=== PATIENT | female | born 1990 | race Caucasian/White ===

== ENCOUNTER 2018-03-15 04:13 | Inpatient (IN) | payer BC ==
[2018-03-15] MEDS ORDERED: Sodium Chloride 0.9% 10 ML Syringe FLUSH PRN (05:27)
[2018-03-15] MEDS ORDERED: Ondansetron 4 MG/2 ML SDV IVPUSH PRN (05:27)
[2018-03-15] MEDS ORDERED: Nalbuphine 20 MG/ML 1 ML Syringe IVPUSH PRN (05:27)
[2018-03-15] MEDS ORDERED: Oxytocin/Lactated Ringers 10 UNIT/1,000 ML BAG IV SCH (05:30)
[2018-03-15] MEDS: Lactated Ringers 1,000 ML IV SCH ×2 (06:01→06:58)
--- NOTE | 2018-03-15 06:15 | PCM.PREANE ---
Preanesthetic Assessment - Anesthesia/Transfusion/Family Hx Anesthesia History: Prior Anesthesia Without Reaction - Review of Systems General: No Symptoms Pulmonary: No Symptoms Cardiovascular: No Symptoms Gastrointestinal: No Symptoms Neurological: No Symptoms - Physical Assessment NPO Status Date: 03/15/18 NPO Status Time: 06:00 Height: 1.73 m Weight: 76.204 kg ASA Class: 2 Mental Status: Alert & Oriented x3 Airway Class: Mallampati = 1 Dentition: Reports: Normal Dentition Thyro-Mental Finger Breadths: 3 Mouth Opening Finger Breadths: 3 ROM/Head Extension: Full Lungs: Clear to Auscultation Cardiovascular: Regular Rate - Lab Values: Laboratory Last Values WBC 20.52 K/mm3 (3.98-10.04) H 03/15/18 05:15 RBC 5.17 M/mm3 (3.98-5.22) 03/15/18 05:15 Hgb 14.6 gm/L (11.2-15.7) 03/15/18 05:15 Hct 42.9 % (34.1-44.9) 03/15/18 05:15 MCV 83.0 fl (79.4-94.8) 03/15/18 05:15 MCH 28.2 pg (25.6-32.2) 03/15/18 05:15 MCHC 34.0 g/dl (32.2-35.5) 03/15/18 05:15 RDW Std Deviation 41.0 fL (36.4-46.3) 03/15/18 05:15 Plt Count 253 K/mm3 (182-369) 03/15/18 05:15 MPV 10.4 fl (9.4-12.3) 03/15/18 05:15 Neut % (Auto) 76.3 % (34.0-71.1) H 03/15/18 05:15 Lymph % (Auto) 14.7 % (19.3-51.7) L 03/15/18 05:15 [place] % (Auto) 7.9 % (4.7-12.5) 03/15/18 05:15 Eos % (Auto) 0.6 (0.7-5.8) L 03/15/18 05:15 Baso % (Auto) 0.1 % (0.1-1.2) 03/15/18 05:15 Neut # (Auto) 15.65 K/mm3 (1.56-6.13) H 03/15/18 05:15 Lymph # (Auto) 3.01 K/mm3 (1.18-3.74) 03/15/18 05:15 [place] # (Auto) 1.63 K/mm3 (0.24-0.36) H 03/15/18 05:15 Eos # (Auto) 0.12 K/mm3 (0.04-0.36) 03/15/18 05:15 Baso # (Auto) 0.03 K/mm3 (0.01-0.08) 03/15/18 05:15 - Allergies Allergies/Adverse Reactions: Allergies Allergy/AdvReac Type Severity Reaction Status Date / Time No Known Allergies Allergy Verified 09/11/15 10:30 - Acknowledgements Anesthesia Type Planned: Epidural Pt an Appropriate Candidate for the Planned Anesthesia: Yes Alternatives and Risks of Anesthesia Discussed w Pt/Guardian: Yes Pt/Guardian Understands and Agrees with Anesthesia Plan: Yes PreAnesthesia Questionnaire Other OB/BYN History: vag del, breast augmentation Neurological History: Reports: Migraines Other Dermatologic History: 2 santiago removed from legs as child - Past Surgical History Female Surgical History: Reports: Breast Reconstruction (augmentation) Dermatological Surgical History: Reports: Other (See Below) (moles/skin removal from leg under [place]) - HOME MEDS Home Medications: Home Meds Vit/Iron Fumarate/FA [ Tablet] 1 each PO DAILY 01/14/14 [ History] Acetaminophen/oxyCODONE [Percocet 325-5 MG] 1 tab PO Q4H PRN #20 tablet [Rx] Ca Carbonate/Vitamin D3/Vit K [Calcium + D Soft Chewable Tab] 2 tab CHEW DAILY 03/09/15 [History] 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] 5 mg PO ACDINNER 03/09/15 [History] Norethindrone-E.estradiol-Iron [Junel Fe 1.5 MG-30 MCG] 1 each PO DAILY [History] Ondansetron [Ondansetron ODT] 4 mg PO Q6H PRN 09/11/15 [History] - CURRENT (IN HOUSE) MEDS Current Meds: Current Medications Lactated Ringer's (Ringers, Lactated) 1,000 mls @ 100 mls/hr IV ASDIRECTED WILLIAM Oxytocin/Lactated Ringer's (Pitocin In Lr 10 Units/1,000 Ml) 10 unit in 1,000 mls @ 500 mls/hr IV .CONTINUOUS WILLIAM Nalbuphine HCl (Nubain) 10 mg IVPUSH Q2H PRN PRN Reason: pain Ondansetron HCl (Zofran) 4 mg IVPUSH Q4H PRN PRN Reason: Nausea/Vomiting Sodium Chloride (Saline Flush) 10 ml FLUSH ASDIRECTED PRN PRN Reason: Keep Vein Open
[2018-03-15] MEDS ORDERED: fentaNYL 100 MCG/2 ML SDV EPIDUR PRN (06:17)
[2018-03-15] MEDS ORDERED: Bupivacaine/fentaNYL/NS 100 ML Bag EPIDUR SCH (06:30)
--- NOTE | 2018-03-15 09:26 | PCM.DEL ---
L & D Note - General Info Date of Service: 03/15/18 - Delivery Note Labor: Spontaneous Delivery Outcome: Livebirth Delivery Mode: Spontaneous Presentation: Vertex Nuchal Cord: Present Anesthesia Type: Epidural Amniotic Fluid Description: Bloody Laceration: None Placenta: Intact, Spontaneous Score 1 min: 8 Score 5 min: 9 - General Info Date of Service: 03/15/18 - Patient Data Vitals - Most Recent: Last Vital Signs Temp 37.0 C 03/15/18 05:27 Pulse 89 03/15/18 05:27 Resp 16 03/15/18 05:27 BP 121/86 03/15/18 05:27 Pulse Ox Weight - Most Recent: 76.204 kg I&O - Last 24 Hours: Intake & Output 03/14/18 03/15/18 03/15/18 22:59 06:59 14:59 Intake Total 800 Balance 800 Lab Results Last 24 Hours: Laboratory Results - last 24 hr 03/15/18 03/15/18 Range/Units 05:15 08:25 WBC 20.52 H (3.98-10.04) K/mm3 RBC 5.17 (3.98-5.22) M/mm3 Hgb 14.6 (11.2-15.7) gm/L Hct 42.9 (34.1-44.9) % MCV 83.0 (79.4-94.8) fl MCH 28.2 (25.6-32.2) pg MCHC 34.0 (32.2-35.5) g/dl RDW Std Deviation 41.0 (36.4-46.3) fL Plt Count 253 (182-369) K/mm3 MPV 10.4 (9.4-12.3) fl Neut % (Auto) 76.3 H (34.0-71.1) % Lymph % (Auto) 14.7 L (19.3-51.7) % [place] % (Auto) 7.9 (4.7-12.5) % Eos % (Auto) 0.6 L (0.7-5.8) Baso % (Auto) 0.1 (0.1-1.2) % Neut # (Auto) 15.65 H (1.56-6.13) K/mm3 Lymph # (Auto) 3.01 (1.18-3.74) K/mm3 [place] # (Auto) 1.63 H (0.24-0.36) K/mm3 Eos # (Auto) 0.12 (0.04-0.36) K/mm3 Baso # (Auto) 0.03 (0.01-0.08) K/mm3 Manual Slide Review Normal smear Blood Type B POSITIVE Med Orders - Current: Current Medications Fentanyl (Sublimaze) 100 mcg EPIDUR Q3H PRN PRN Reason: Pain Last Admin: 03/15/18 07:01 Dose: 100 mcg Fentanyl/Bupivacaine HCl (Fentanyl/Bupivacaine/Ns 2 Mcg-0.125% 100 Ml) 100 ml EPIDUR ASDIRECTED WILLIAM Last Admin: 03/15/18 07:01 Dose: 100 ml Lactated Ringer's (Ringers, Lactated) 1,000 mls @ 100 mls/hr IV ASDIRECTED WLILIAM Last Infusion: 03/15/18 07:54 Dose: 100 mls/hr Oxytocin/Lactated Ringer's (Pitocin In Lr 10 Units/1,000 Ml) 10 unit in 1,000 mls @ 500 mls/hr IV .CONTINUOUS WILLIAM Last Admin: 03/15/18 08:51 Dose: 500 mls/hr Nalbuphine HCl (Nubain) 10 mg IVPUSH Q2H PRN PRN Reason: pain Ondansetron HCl (Zofran) 4 mg IVPUSH Q4H PRN PRN Reason: Nausea/Vomiting Sodium Chloride (Saline Flush) 10 ml FLUSH ASDIRECTED PRN PRN Reason: Keep Vein Open - Problem List Review Problem List Initiated/Reviewed/Updated: Yes - My Orders Last 24 Hours: My Active Orders 03/15/18 05:15 RAPID PLASMA REAGIN,RPR [CHEM] Routine 03/15/18 05:27 Activity as Tolerated [RC] PFP Communication Order [RC] ASDIRECTED Heart Tones [RC] ASDIRECTED Non Stress Test [RC] PER UNIT ROUTINE Notify Provider [RC] PFP Notify Provider [RC] PRN Peripheral IV Care [RC] . DIRECTED Vital Signs [RC] PER UNIT ROUTINE Nalbuphine [Nubain] 10 mg IVPUSH Q2H PRN Ondansetron [Zofran] 4 mg IVPUSH Q4H PRN Sodium Chloride 0.9% [Saline Flush] 10 ml FLUSH ASDIRECTED PRN Electronic Heart Tones Ext w TOCO [WOMSER] Routine Electronic Heart Tones Internal [WOMSER] Per Unit Routine Peripheral IV Insertion Adult [OM.PC] Routine Resuscitation Status Routine 03/15/18 05:30 Lactated Ringers [Ringers, Lactated] 1,000 ml IV ASDIRECTED Oxytocin/Lactated Ringers [Pitocin in LR 10 Units/1,000 ML] 10 unit in 1,000 ml IV .CONTINUOUS 03/15/18 05:36 Admission Status [Patient Status] [ADT] Routine 03/15/18 08:25 ABO/RH TYPE [BBK] Routine PATIENT RETYPE [BBK] Routine 03/15/18 09:23 Patient Status Manage Transfer [TRANSFER] Routine 03/15/18 Breakfast Regular Diet [DIET]
[2018-03-15] MEDS ORDERED: Bupivacaine 0.25% 10 ML SDV ONE (10:00)
[2018-03-15] MEDS ORDERED: Witch Hazel Medicated Pads 100/Jar TOP PRN (10:02)
[2018-03-15] MEDS ORDERED: Lanolin 100% Cream 7 GM Tube TOP PRN (10:02)
[2018-03-15] MEDS ORDERED: Benzocaine/Menthol 20%-0.5% Spray 56 GM Canister TOP PRN (10:02)
[2018-03-15] MEDS: Ibuprofen 600 MG Tab PO PRN ×2 (10:25→18:43)
[2018-03-15] MEDS: Acetaminophen/oxyCODONE 325-5 MG Tab PO PRN ×2 (14:15→20:50)
[2018-03-16] MEDS: Ibuprofen 600 MG Tab PO PRN (01:35)
[2018-03-16] MEDS: Acetaminophen/oxyCODONE 325-5 MG Tab PO PRN (03:45)
--- NOTE | 2018-03-16 08:41 | PCM.DCSUM1 ---
Discharge Summary - Hospital Course Brief History: Admitted in active labor. Uncomplicated Diagnosis: Stroke: No - Discharge Data Discharge Date: 03/16/18 Discharge Disposition: Home, Self-Care 01 Condition: Good - Patient Instructions Diet: Usual Diet as Tolerated Activity: No Strenuous Activities Driving: May Drive Today Showering/Bathing: May Shower Notify Provider of: Fever, Increased Pain, Swelling and Redness, Drainage, Nausea and/or Vomiting - Discharge Plan *PRESCRIPTION DRUG MONITORING PROGRAM REVIEWED*: Yes *COPY OF PRESCRIPTION DRUG MONITORING REPORT IN PATIENT ALONSO: Yes Home Medications: Home Meds Acetaminophen/oxyCODONE [Percocet 325-5 MG] 1 tab PO Q4H PRN #20 tablet [Rx] Ca Carbonate/Vitamin D3/Vit K [Calcium + D Soft Chewable Tab] 2 tab CHEW DAILY 03/09/15 [History] - Discharge Summary/Plan Comment DC Time >30 min.: No - General Info Date of Service: 03/16/18 Functional Status: Reports: Pain Controlled - Review of Systems General: Reports: No Symptoms HEENT: Reports: No Symptoms Pulmonary: Reports: No Symptoms Cardiovascular: Reports: No Symptoms Gastrointestinal: Reports: No Symptoms Genitourinary: Reports: No Symptoms Musculoskeletal: Reports: No Symptoms Skin: Reports: No Symptoms Neurological: Reports: No Symptoms Psychiatric: Reports: No Symptoms - Patient Data Vitals - Most Recent: Last Vital Signs Temp 36.4 C 03/16/18 03:49 Pulse 85 03/16/18 03:49 Resp 15 03/16/18 03:49 BP 125/77 03/16/18 03:49 Pulse Ox 95 03/16/18 03:49 Weight - Most Recent: 76.204 kg I&O - Last 24 hours: Intake & Output 03/15/18 03/16/18 03/16/18 22:59 06:59 14:59 Intake Total 240 Balance 240 Lab Results - Last 24 hrs: Laboratory Results - last 24 hr 03/15/18 Range/Units 08:25 Blood Type B POSITIVE Med Orders - Current: Current Medications Benzocaine/Menthol (Dermoplast Pain Relief [place]) 0 gm TOP ASDIRECTED PRN PRN Reason: Perineal Comfort Measure Last Admin: 03/15/18 10:25 Dose: 1 applic Emollient Ointment (Lansinoh Hpa) 0 gm TOP ASDIRECTED PRN PRN Reason: Sore Nipples Last Admin: 03/15/18 20:52 Dose: 1 tube Ibuprofen (Motrin) 600 mg PO Q6H PRN PRN Reason: Mild pain or fever Last Admin: 03/16/18 01:35 Dose: 600 mg Oxycodone/Acetaminophen (Percocet 325-5 Mg) 1 tab PO Q6H PRN PRN Reason: Pain (moderate 4-6) Last Admin: 03/16/18 03:45 Dose: 1 tab Witch Josie (Tucks) 1 pad TOP ASDIRECTED PRN PRN Reason: Hemorrhoid pain Last Admin: 03/15/18 10:25 Dose: 1 applic Discontinued Medications Fentanyl (Sublimaze) 100 mcg EPIDUR Q3H PRN PRN Reason: Pain Last Admin: 03/15/18 07:01 Dose: 100 mcg Fentanyl/Bupivacaine HCl (Fentanyl/Bupivacaine/Ns 2 Mcg-0.125% 100 Ml) 100 ml EPIDUR ASDIRECTED WILLIAM Last Admin: 03/15/18 07:01 Dose: 100 ml Lactated Ringer's (Ringers, Lactated) 1,000 mls @ 100 mls/hr IV ASDIRECTED WILLIAM Last Infusion: 03/15/18 07:54 Dose: 100 mls/hr Oxytocin/Lactated Ringer's (Pitocin In Lr 10 Units/1,000 Ml) 10 unit in 1,000 mls @ 500 mls/hr IV .CONTINUOUS WILLIAM Last Admin: 03/15/18 08:51 Dose: 500 mls/hr Nalbuphine HCl (Nubain) 10 mg IVPUSH Q2H PRN PRN Reason: pain Ondansetron HCl (Zofran) 4 mg IVPUSH Q4H PRN PRN Reason: Nausea/Vomiting Sodium Chloride (Saline Flush) 10 ml FLUSH ASDIRECTED PRN PRN Reason: Keep Vein Open
[2018-03-16 10:05] VITALS: BP 112/82
--- NOTE | 2018-03-16 17:25 | PCM48HPAN ---
Post Anesthesia Note - EVALUATION WITHIN 48HRS OF ANESTHETIC Vital Signs in Normal Range: Yes Patient Participated in Evaluation: Yes Respiratory Function Stable: Yes Airway Patent: Yes Cardiovascular Function Stable: Yes Hydration Status Stable: Yes Pain Control Satisfactory: Yes Nausea and Vomiting Control Satisfactory: Yes Mental Status Recovered: Yes - COMMENTS/OBSERVATIONS Free Text/Narrative:: Patient discharged home. No complications noted.
== END 2018-03-16 10:52 | disposition home or self-care (01) | DRG 560 ==
LOC: JD.OBCHECK 04:13 → JD.OB 04:13 → JD.OBCHECK 05:27 → OBSVTOIN 08:47 → JD.OB 08:48
PROVIDERS: ADMIT Obstetrics & Gynecology; ATTEND Obstetrics & Gynecology
PROC: 10E0XZZ Delivery of Products of Conception, External Approach (ICD-10-PCS; principal; 2018-03-15)
PROC: 00HU33Z Insertion of Infusion Device into Spinal Canal, Percutaneous Approach (ICD-10-PCS; 2018-03-15)
PROC: 3E0R3BZ Introduction of Anesthetic Agent into Spinal Canal, Percutaneous Approach (ICD-10-PCS; 2018-03-15)
DX: O80 Encounter for full-term uncomplicated delivery (principal); Z3A.00 Weeks of gestation of pregnancy not specified; Z37.0 Single live birth
CPT/HCPCS: 36415; 51701; 59025; 59409; 85025; 86592; 86900; 86901; A9270-GY; J2590; J3010; J3490; J7120

== ENCOUNTER 2020-09-23 18:35 | Inpatient (IN) | payer BC ==
[~2020-09-23 18:35] MED LIST: Lidocaine 1.5% with EPINEPHrine 1:200,000 5 ML Amp ONE
[2020-09-23] MEDS ORDERED: Nalbuphine 10 MG/1 ML Vial IVPUSH PRN (20:13)
[2020-09-23] MEDS ORDERED: Calcium Carbonate 500 MG Tab.Chew PO PRN (20:13)
[2020-09-23] MEDS ORDERED: Ondansetron 4 MG/2 ML SDV IVPUSH PRN (20:13)
[2020-09-23] MEDS ORDERED: Sodium Chloride 0.9% 10 ML Syringe FLUSH PRN (20:13)
[2020-09-23] MEDS ORDERED: Lidocaine 1% 50 ML MDV INJECT ONE (20:13)
[2020-09-23] MEDS ORDERED: Oxytocin/Lactated Ringers 10 UNIT/1,000 ML BAG IV SCH (20:15)
[2020-09-23] MEDS: Lactated Ringers 1,000 ML IV SCH ×2 (20:35→21:18)
[2020-09-23] MEDS ORDERED: fentaNYL 100 MCG/2 ML SDV EPIDUR PRN (20:39)
[2020-09-23] MEDS ORDERED: diphenhydrAMINE 50 MG/ML SDV IVPUSH PRN (20:39)
[2020-09-23] MEDS ORDERED: ePHEDrine 50 MG/ML SDV IVPUSH PRN (20:39)
[2020-09-23] MEDS ORDERED: Bupivacaine/fentaNYL/NS 100 ML Bag EPIDUR PRN (20:39)
--- NOTE | 2020-09-23 21:08 | PCM.PREANE ---
Preanesthetic Assessment - Procedure Proposed Procedure: Continuous labor epidural - Anesthesia/Transfusion/Family Hx Anesthesia History: Prior Anesthesia Without Reaction Transfusion History: No Prior Transfusion(s) - Review of Systems General: No Symptoms Pulmonary: No Symptoms Cardiovascular: No Symptoms Gastrointestinal: No Symptoms Neurological: No Symptoms Other: Reports: None - Physical Assessment Vital Signs: Last Vital Signs Temp 98.2 F 09/23/20 19:56 Pulse 94 09/23/20 19:56 Resp 16 09/23/20 19:56 BP 133/92 H 09/23/20 19:56 Pulse Ox 96 09/23/20 19:56 Height: 1.73 m Weight: 75.296 kg ASA Class: 2 Mental Status: Alert & Oriented x3 Airway Class: Mallampati = 1 Dentition: Reports: Normal Dentition Thyro-Mental Finger Breadths: 3 Mouth Opening Finger Breadths: 3 ROM/Head Extension: Full Lungs: Clear to Auscultation, Normal Respiratory Effort Cardiovascular: Regular Rate, Regular Rhythm - Lab Values: Laboratory Last Values WBC 14.20 K/mm3 (3.98-10.04) H 09/23/20 20:20 RBC 4.99 M/mm3 (3.98-5.22) 09/23/20 20:20 Hgb 14.2 gm/dl (11.2-15.7) 09/23/20 20:20 Hct 42.1 % (34.1-44.9) 09/23/20 20:20 MCV 84.4 fl (79.4-94.8) 09/23/20 20:20 MCH 28.5 pg (25.6-32.2) 09/23/20 20:20 MCHC 33.7 g/dl (32.2-35.5) 09/23/20 20:20 RDW Std Deviation 42.6 fL (36.4-46.3) 09/23/20 20:20 Plt Count 243 K/mm3 (182-369) 09/23/20 20:20 MPV 10.3 fl (9.4-12.3) 09/23/20 20:20 Neut % (Auto) 68.3 % (34.0-71.1) 09/23/20 20:20 Lymph % (Auto) 22.5 % (19.3-51.7) 09/23/20 20:20 [place] % (Auto) 7.9 % (4.7-12.5) 09/23/20 20:20 Eos % (Auto) 0.8 (0.7-5.8) 09/23/20 20:20 Baso % (Auto) 0.1 % (0.1-1.2) 09/23/20 20:20 Neut # (Auto) 9.70 K/mm3 (1.56-6.13) H 09/23/20 20:20 Lymph # (Auto) 3.19 K/mm3 (1.18-3.74) 09/23/20 20:20 [place] # (Auto) 1.12 K/mm3 (0.24-0.36) H 09/23/20 20:20 Eos # (Auto) 0.12 K/mm3 (0.04-0.36) 09/23/20 20:20 Baso # (Auto) 0.02 K/mm3 (0.01-0.08) 09/23/20 20:20 - Allergies Allergies/Adverse Reactions: Allergies Allergy/AdvReac Type Severity Reaction Status Date / Time No Known Allergies Allergy Verified 09/11/15 10:30 - Acknowledgements Anesthesia Type Planned: Epidural Pt an Appropriate Candidate for the Planned Anesthesia: Yes Alternatives and Risks of Anesthesia Discussed w Pt/Guardian: Yes Pt/Guardian Understands and Agrees with Anesthesia Plan: Yes PreAnesthesia Questionnaire HEENT History: Reports: None Cardiovascular History: Reports: None Respiratory History: Reports: None Gastrointestinal History: Reports: None Genitourinary History: Reports: Renal Calculus, STD, UTI, Recurrent Other Genitourinary History: Past hx of chlamydia w/tx and HPV 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 OB/BYN History: vag del, breast augmentation Musculoskeletal History: Reports: Fibromyalgia Neurological History: Reports: Migraines Psychiatric History: Reports: Depression Endocrine/Metabolic History: Reports: None Hematologic History: Reports: None Immunologic History: Reports: None Oncologic (Cancer) History: Reports: None Dermatologic History: Reports: Eczema Other Dermatologic History: 2 santiago removed from legs as child - Infectious Disease History Infectious Disease History: Reports: Human Papilloma Virus (HPV) - Past Surgical History Female Surgical History: Reports: Breast Reconstruction (augmentation) Dermatological Surgical History: Reports: Other (See Below) (moles/skin removal from leg under [place]) - HOME MEDS Home Medications: Home Meds Acetaminophen/oxyCODONE [Percocet 325-5 MG] 1 tab PO Q4H PRN #20 tablet 08/14/14 [Rx] Calcium Carb/Vitamin D3/Vit K1 [Calcium + D Soft Chewable Tab] 2 tab CHEW DAILY 03/09/15 [History] - CURRENT (IN HOUSE) MEDS Current Meds: Current Medications Calcium Carbonate/Glycine (Tums) 1,000 mg PO Q2H PRN PRN Reason: Indigestion Diphenhydramine HCl (Benadryl) 25 mg IVPUSH Q6H PRN PRN Reason: pruritis Ephedrine Sulfate (Ephedrine Sulfate) 5 mg IVPUSH ASDIRECTED PRN PRN Reason: Hypotension Fentanyl (Sublimaze) 100 mcg EPIDUR Q3H PRN PRN Reason: Pain Fentanyl/Bupivacaine HCl (Fentanyl/Bupivacaine/Ns 2 Mcg-0.125% 100 Ml) 100 ml EPIDUR ASDIRECTED PRN PRN Reason: Pain Lactated Ringer's (Ringers, Lactated) 1,000 mls @ 100 mls/hr IV ASDIRECTED WILLIAM Last Admin: 09/23/20 20:35 Dose: 100 mls/hr Documented by: Oxytocin/Lactated Ringer's (Pitocin In Lr 10 Units/1,000 Ml) 10 unit in 1,000 mls @ 500 mls/hr IV .CONTINUOUS [facility] Nalbuphine HCl (Nubain) 10 mg IVPUSH Q2H PRN PRN Reason: Pain Ondansetron HCl (Zofran) 4 mg IVPUSH Q4H PRN PRN Reason: Nausea/Vomiting Sodium Chloride (Saline Flush) 10 ml FLUSH ASDIRECTED PRN PRN Reason: Keep Vein Open Discontinued Medications Lidocaine HCl (Xylocaine 1%) 10 ml INJECT ONETIME ONE Stop: 09/23/20 20:14
--- NOTE | 2020-09-23 21:15 | PCM.LDHP ---
L&D History of Present Illness - General Date of Service: 09/23/20 Admit Problem/Dx: Patient Status Order with Admit Dx/Problem 09/23/20 19:56 Patient Status [ADT] Routine 09/23/20 20:13 Patient Status [ADT] Routine Admission Diagnosis/Problem Admission Diagnosis/Problem Source of Information: Patient History Limitations: Reports: No Limitations - History of Present Illness Introduction:: Ingrid Melendez is a 30-year-old -0-0-2 female at 38 weeks 1 day by certain LMP consistent with anatomy ultrasound who presents for labor. She states that when she was vacuuming earlier today she started having increasing amount of pain and pressure that was lasting for about 20 minutes. This started around 5 PM. After the pain subsided she started to have intermittent cramping pain that was getting stronger and she was concerned that she may be having contractions. She denies any leaking of fluid but has been having some vaginal bleeding after she was checked in the clinic yesterday. She reports good movement. Timing/Duration: Reports: gradual onset (Starting at around 5 PM and getting worse throughout the evening), intermittent (Contractions every couple of minutes) Location, : Reports: Lower back, Pelvic Quality: Reports: Pressure, Throbbing Severity: Moderate Improves with: Reports: None Worsens with: Reports: None Associated Symptoms: Reports: vaginal bleeding, mild amount. Denies: vaginal discharge, vaginal fluid Present Illness Comments:: Ingrid Melendez is a 30-year-old -0-0-2 female at 38 weeks 1 day (MARK 10/06/2020) by LMP consistent with her anatomy ultrasound. She has had routine care with Dr. Young starting at 12 weeks gestational age. She denies having any complications during this . She received the Tdap vaccine on 08/04/2020. Her is complicated by: * Fibromyalgia and chronic low back pain * History of LEEP procedure in 2010, she has had 2 vaginal deliveries since the procedure * Elevated 1 hour glucose tolerance test with normal 3-hour glucose tolerance test * Psoriasis with occasional skin rashes with current skin rash on her lower legs, she has occasionally used clobetasol throughout the * History of migraines * History of chlamydia infection at age 18 [employer] history -0-0-2 G1: 08/12/2014, 38 weeks 3 days, , 6 pounds 8 ounces, epidural for anesthesia, no complications G2: 03/15/2018, 38 weeks 6 days, , 6 pounds 6 ounces, epidural for anesthesia, she reports there were decelerations during labor with possible abruption near the time of delivery G3: Current labs Blood type: B+ Antibody screen: Negative First trimester hematocrit/hemoglobin: 40.2%/13.6 on 03/24/2020 Platelets: 282 on 03/24/2020 Rubella status: Immune Hepatitis B surface antigen: Negative RPR: Negative HIV: Negative Gonorrhea: Negative Chlamydia: Negative One hour glucose tolerance test: 194 Second trimester hemoglobin: 13.0 on 06/30/2020 Platelets: 255 on 06/30/2020 GBS status: Negative - Related Data Allergies/Adverse Reactions: Allergies Allergy/AdvReac Type Severity Reaction Status Date / Time No Known Allergies Allergy Verified 09/11/15 10:30 Home Medications: Home Meds Acetaminophen/oxyCODONE [Percocet 325-5 MG] 1 tab PO Q4H PRN #20 tablet 08/14/14 [Rx] Calcium Carb/Vitamin D3/Vit K1 [Calcium + D Soft Chewable Tab] 2 tab CHEW DAILY 03/09/15 [History] Past Medical History HEENT History: Reports: None Cardiovascular History: Reports: None Respiratory History: Reports: None Gastrointestinal History: Reports: None Genitourinary History: Reports: Renal Calculus, STD, UTI, Recurrent Other Genitourinary History: Past hx of chlamydia w/tx and HPV [employer] History: Reports: : 3 Para: 2 Other OB/BYN History: vag del, breast augmentation Musculoskeletal History: Reports: Fibromyalgia Neurological History: Reports: Migraines Psychiatric History: Reports: Depression Endocrine/Metabolic History: Reports: None Hematologic History: Reports: None Immunologic History: Reports: None Oncologic (Cancer) History: Reports: None Dermatologic History: Reports: Eczema Other Dermatologic History: 2 santiago removed from legs as child - Infectious Disease History Infectious Disease History: Reports: Human Papilloma Virus (HPV) - Past Surgical History Female Surgical History: Reports: Breast Implant, LEEP (2010) Dermatological Surgical History: Reports: Other (See Below) (moles/skin removal from leg under GA) Social & Family History - Family History Family Medical History: No Pertinent Family History - Tobacco Use Tobacco Use Status *Q: Former Tobacco User (Stopped in 2013) Tobacco Use Within Last Twelve Months: No Used Tobacco, but Quit: Yes Month/Year Tobacco Last Used: 2013 - Tobacco Core Measures Tobacco Use/Smoking Within Last 30 Days: No Smokeless Tobacco Use in Last 30 Days: No - Caffeine Use Caffeine Use: Reports: None - Alcohol Use Alcohol Use History: No - Recreational Drug Use Recreational Drug Use: Yes Drug Use in Last 12 Months: No Recreational Drug Type: Reports: Marijuana/Hashish (In high school) - Living Situation & Occupation Living situation: Reports: , with Significant Other, with Family Occupation: Employed H&P Review of Systems - Review of Systems: Review Of Systems: See Below General: Denies: Fever, Chills, Malaise, Weakness, Fatigue HEENT: Reports: Glasses. Denies: Headaches, Rhinitis, Post Nasal Drip, Sinus Congestion, Sore Throat, Visual Changes Pulmonary: Denies: Shortness of Breath, Wheezing, Pleuritic Chest Pain, Cough Cardiovascular: Denies: Chest Pain, Palpitations, Dyspnea on Exertion, Orthopnea Gastrointestinal: Denies: Abdominal Pain, Constipation, Diarrhea, Nausea, Vomiting Genitourinary: Denies: Dysuria, Frequency, Burning, Pain, Urgency Musculoskeletal: Reports: Back Pain (And hip pain of ) Skin: Reports: Rash (On bilateral lower legs consistent with her previous psoriasis diagnosis). Denies: Lesions Psychiatric: Denies: Depression, Anxiety L&D Exam - Exam Exam: See Below - Vital Signs Vital Signs: Last Vital Signs Temp 36.8 C 09/23/20 19:56 Pulse 94 09/23/20 19:56 Resp 16 09/23/20 19:56 BP 133/92 H 09/23/20 19:56 Pulse Ox 96 09/23/20 19:56 Weight: 75.296 kg - OB Specific Contraction Duration (sec): 45-60 Contraction Frequency (min): 1-3 Contraction Intensity: Moderate to Strong Movement: Active Heart Tones: Present Heart Tones per Min: 130 (+15 x 15 accelerations, no decelerations) Heart Rate (FHR) Variability: Moderate (6-25 bmp) Presentation: Vertex Estimated Weight: 6-6.5 lbs by Drake's - Braga Score Braga Score Cervix Position: Anterior Braga Score Consistency: Soft Braga Score Effacement: >80% (90%) Braga Score Dilation: > 5 cm (6 cm) Braga Score Infant's Station: -2 Braga Score Total: 11 - Exam General: Alert, Oriented HEENT: Conjunctiva Clear, EOMI Neck: Supple, Trachea Midline Lungs: Clear to Auscultation, Normal Respiratory Effort Cardiovascular: Regular Rate, Regular Rhythm GI/Abdominal Exam: Soft, Non-Tender, No Distention, Other (Gravid). No: Guarding, Rigid, Rebound Genitourinary: Normal external exam Extremities: Normal Inspection, No Pedal Edema Skin: Warm, Dry, Intact Psychiatric: Alert, Normal Affect, Normal Mood - Patient Data Lab Results Last 24 hrs: Laboratory Results - last 24 hr 09/23/20 Range/Units 20:20 WBC 14.20 H (3.98-10.04) K/mm3 RBC 4.99 (3.98-5.22) M/mm3 Hgb 14.2 (11.2-15.7) gm/dl Hct 42.1 (34.1-44.9) % MCV 84.4 (79.4-94.8) fl MCH 28.5 (25.6-32.2) pg MCHC 33.7 (32.2-35.5) g/dl RDW Std Deviation 42.6 (36.4-46.3) fL Plt Count 243 (182-369) K/mm3 MPV 10.3 (9.4-12.3) fl Neut % (Auto) 68.3 (34.0-71.1) % Lymph % (Auto) 22.5 (19.3-51.7) % [place] % (Auto) 7.9 (4.7-12.5) % Eos % (Auto) 0.8 (0.7-5.8) Baso % (Auto) 0.1 (0.1-1.2) % Neut # (Auto) 9.70 H (1.56-6.13) K/mm3 Lymph # (Auto) 3.19 (1.18-3.74) K/mm3 [place] # (Auto) 1.12 H (0.24-0.36) K/mm3 Eos # (Auto) 0.12 (0.04-0.36) K/mm3 Baso # (Auto) 0.02 (0.01-0.08) K/mm3 Result Diagrams: 09/23/20 20:20 09/23/20 20:20 - Problem List (1) 38 weeks gestation of SNOMED Code(s): 45106803 ICD Code: Z3A.38 - 38 WEEKS GESTATION OF Status: Acute Current Visit: Yes (2) Fibromyalgia SNOMED Code(s): 635515719 ICD Code: M79.7 - FIBROMYALGIA Status: Acute Current Visit: Yes (3) Abnormal glucose tolerance test (GTT) during , antepartum Status: Acute Current Visit: Yes Problem List Initiated/Reviewed/Updated: Yes Orders Last 24hrs: Active Orders 24 hr Category Date Time Status Patient Status [ADT] Routine ADT 09/23/20 20:13 Active Activity as Tolerated [RC] PFP Care 09/23/20 20:13 Active Communication Order [RC] ASDIRECTED Care 09/23/20 20:13 Active Heart Tones [RC] ASDIRECTED Care 09/23/20 20:13 Active Non Stress Test [RC] PER UNIT ROUTINE Care 09/23/20 19:56 Active Notify Provider [RC] ASDIRECTED Care 09/23/20 20:40 Active Notify Provider [RC] PFP Care 09/23/20 20:13 Active Notify Provider [RC] PRN Care 09/23/20 20:13 Active Peripheral IV Care [RC] . DIRECTED Care 09/23/20 20:13 Active Vital Signs [RC] PER UNIT ROUTINE Care 09/23/20 19:56 Active BLOOD BANK HOLD SPECIMEN [BBK] Stat Lab 09/23/20 20:20 Received CORONAVIRUS COVID-19 EVERARDO [MOLEC] Stat Lab 09/23/20 20:13 Received RAPID PLASMA REAGIN,RPR [CHEM] Routine Lab 09/23/20 20:20 Received Bupivacaine/fentaNYL/NS [fentaNYL/Bupivacaine/NS 2 MCG- Med 09/23/20 20:39 Active 0.125% 100 ML] 100 ml EPIDUR ASDIRECTED PRN Calcium Carbonate [Tums] Med 09/23/20 20:13 Active 1,000 mg PO Q2H PRN Lactated Ringers [Ringers, Lactated] 1,000 ml Med 09/23/20 20:15 Active IV ASDIRECTED Nalbuphine [Nubain] Med 09/23/20 20:13 Active 10 mg IVPUSH Q2H PRN Ondansetron [Zofran] Med 09/23/20 20:13 Active 4 mg IVPUSH Q4H PRN Oxytocin/Lactated Ringers [Pitocin in LR 10 Units/1,000 Med 09/23/20 20:15 A ctive ML] 10 unit in 1,000 ml IV .CONTINUOUS Sodium Chloride 0.9% [Saline Flush] Med 09/23/20 20:13 Active 10 ml FLUSH ASDIRECTED PRN diphenhydrAMINE [Benadryl] Med 09/23/20 20:39 Active 25 mg IVPUSH Q6H PRN ePHEDrine [ePHEDrine sulfate] Med 09/23/20 20:39 Active 5 mg IVPUSH ASDIRECTED PRN fentaNYL [Sublimaze] Med 09/23/20 20:39 Active 100 mcg EPIDUR Q3H PRN Electronic Heart Tones Ext w TOCO [WOMSER] Oth 09/23/20 20:13 Ordered Routine Electronic Heart Tones Internal [WOMSER] Per Unit Ot 09/23/20 20:13 Ordered Routine Peripheral IV Insertion Adult [OM.PC] Routine Oth 09/23/20 20:13 Ordered Resuscitation Status Routine Resus Stat 09/23/20 19:56 Ordered Medication Orders Calcium Carbonate/Glycine (Tums) 1,000 mg PO Q2H PRN PRN Reason: Indigestion Diphenhydramine HCl (Benadryl) 25 mg IVPUSH Q6H PRN PRN Reason: pruritis Ephedrine Sulfate (Ephedrine Sulfate) 5 mg IVPUSH ASDIRECTED PRN PRN Reason: Hypotension Fentanyl (Sublimaze) 100 mcg EPIDUR Q3H PRN PRN Reason: Pain Fentanyl/Bupivacaine HCl (Fentanyl/Bupivacaine/Ns 2 Mcg-0.125% 100 Ml) 100 ml EPIDUR ASDIRECTED PRN PRN Reason: Pain Lactated Ringer's (Ringers, Lactated) 1,000 mls @ 100 mls/hr IV ASDIRECTED WILLIAM Last Admin: 09/23/20 20:35 Dose: 100 mls/hr Documented by: SARA Oxytocin/Lactated Ringer's (Pitocin In Lr 10 Units/1,000 Ml) 10 unit in 1,000 mls @ 500 mls/hr IV .CONTINUOUS WILLIAM Nalbuphine HCl (Nubain) 10 mg IVPUSH Q2H PRN PRN Reason: Pain Ondansetron HCl (Zofran) 4 mg IVPUSH Q4H PRN PRN Reason: Nausea/Vomiting Sodium Chloride (Saline Flush) 10 ml FLUSH ASDIRECTED PRN PRN Reason: Keep Vein Open Assessment/Plan Comment:: Ingrid Melendez is a 30-year-old -0-0-2 female at 38 weeks 1 day with active labor Patient had artificial rupture membranes performed with [place] with return of clear fluids. Mother and tolerated procedure without difficulty. Refer to observation for spontaneous labor with cervical change Artificial rupture membranes with return of clear fluid Continuous monitoring Place IV and have Lactated Ringer's at 125 ml/hr May have small amounts of regular diet Activity as tolerated Patient with epidural in place Plans to breast-feed after delivery We will continue to monitor her blood pressures closely has she has had some mild range blood pressures but they may be related to pain response Anticipate vaginal delivery unless otherwise indicated Rey Méndez MD 10:31 PM 09/23/2020
--- NOTE | 2020-09-23 23:51 | PCM.DEL ---
L & D Note - General Info Date of Service: 09/23/20 Mother's Due Date: 10/06/20 - Delivery Note Labor: Spontaneous, Augmented by ARM Delivery Outcome: Livebirth Delivery Method: Spontaneous Vaginal Delivery-Single Presentation: Left Occiput Anterior (CELINA) Nuchal Cord: None Anesthesia Type: Epidural Amniotic Fluid Description: Clear Episiotomy Type: None Laceration: Labial (bilateral superficial medial lacerations, hemostatic, not repaired) Placenta: Intact, Spontaneous Cord: 3 Vessels Estimated Blood Loss: 200 Resuscitation Needed: No : Bulb Syringe, Cathether, Stimulated, Warmed, Cos Cob Used Provider: Rey Méndez Score 1 min: 8 Score 5 min: 9 Second Stage Interventions: Reports: Pushing, Stirrups/Leg Supports Delivery Comments (Free Text/Narrative):: Stage I: Ingrid Melendez was admitted for spontaneous labor. On admission her cervix was dilated to 3 to 4 cm. She was GBS negative. She made progression to 5 cm over the course of the first several hours on labor and delivery. She was given an epidural for anesthesia. She had artificial rupture membranes with clear fluid. She progressed to complete and pushing. Stage II: On 09/23/2020 she had a normal vaginal delivery of a live female at 23:26. Apgars of 8 & 9. Weight of 3030 g (6 lbs 10.9 oz). Length of 20.0 inches. There was no nuchal cord. was delivered in CELINA position. The cord was doubly clamped and cut by father the . was placed on mother's abdomen. Stage III: She had a spontaneous delivery of an intact placenta in Leanna presentation. Three vessel cord. She was given pitocin and fundal massage. She had superficial bilateral lateral medial labia minora lacerations that were hemostatic and not repaired. Mom and baby were stable to recovery. EBL of 200 mL. Rey Méndez MD 11:53 PM 09/23/2020 - General Info Date of Service: 09/23/20 - Patient Data Vitals - Most Recent: Last Vital Signs Temp 36.8 C 09/23/20 19:56 Pulse 94 09/23/20 19:56 Resp 16 09/23/20 19:56 BP 133/92 H 09/23/20 19:56 Pulse Ox 96 09/23/20 19:56 Weight - Most Recent: 75.296 kg Lab Results Last 24 Hours: Laboratory Results - last 24 hr 09/23/20 09/23/20 09/23/20 Range/Units 20:13 20:20 20:20 WBC 14.20 H (3.98-10.04) K/mm3 RBC 4.99 (3.98-5.22) M/mm3 Hgb 14.2 (11.2-15.7) gm/dl Hct 42.1 (34.1-44.9) % MCV 84.4 (79.4-94.8) fl MCH 28.5 (25.6-32.2) pg MCHC 33.7 (32.2-35.5) g/dl RDW Std Deviation 42.6 (36.4-46.3) fL Plt Count 243 (182-369) K/mm3 MPV 10.3 (9.4-12.3) fl Neut % (Auto) 68.3 (34.0-71.1) % Lymph % (Auto) 22.5 (19.3-51.7) % [place] % (Auto) 7.9 (4.7-12.5) % Eos % (Auto) 0.8 (0.7-5.8) Baso % (Auto) 0.1 (0.1-1.2) % Neut # (Auto) 9.70 H (1.56-6.13) K/mm3 Lymph # (Auto) 3.19 (1.18-3.74) K/mm3 [place] # (Auto) 1.12 H (0.24-0.36) K/mm3 Eos # (Auto) 0.12 (0.04-0.36) K/mm3 Baso # (Auto) 0.02 (0.01-0.08) K/mm3 Sodium (136-145) mEq/L Potassium (3.5-5.1) mEq/L Chloride (98-107) mEq/L Carbon Dioxide (21-32) mEq/L Anion Gap (5-15) BUN (7-18) mg/dL Creatinine (0.55-1.02) mg/dL Est Cr Clr Drug Dosing mL/min Estimated GFR (MDRD) (>60) mL/min BUN/Creatinine Ratio (14-18) Glucose (74-106) mg/dL Calcium (8.5-10.1) mg/dL Total Bilirubin (0.2-1.0) mg/dL AST (15-37) U/L ALT (14-59) U/L Alkaline Phosphatase (46-116) U/L Total Protein (6.4-8.2) g/dl Albumin (3.4-5.0) g/dl Globulin gm/dL Albumin/Globulin Ratio (1-2) RPR Non-reactive (NONREACTIVE) SARS-CoV-2 RNA (EVERAROD) Negative (NEGATIVE) 09/23/20 Range/Units 20:20 WBC (3.98-10.04) K/mm3 RBC (3.98-5.22) M/mm3 Hgb (11.2-15.7) gm/dl Hct (34.1-44.9) % MCV (79.4-94.8) fl MCH (25.6-32.2) pg MCHC (32.2-35.5) g/dl RDW Std Deviation (36.4-46.3) fL Plt Count (182-369) K/mm3 MPV (9.4-12.3) fl Neut % (Auto) (34.0-71.1) % Lymph % (Auto) (19.3-51.7) % [place] % (Auto) (4.7-12.5) % Eos % (Auto) (0.7-5.8) Baso % (Auto) (0.1-1.2) % Neut # (Auto) (1.56-6.13) K/mm3 Lymph # (Auto) (1.18-3.74) K/mm3 [place] # (Auto) (0.24-0.36) K/mm3 Eos # (Auto) (0.04-0.36) K/mm3 Baso # (Auto) (0.01-0.08) K/mm3 Sodium 139 (136-145) mEq/L Potassium 3.6 (3.5-5.1) mEq/L Chloride 100 (98-107) mEq/L Carbon Dioxide 22 (21-32) mEq/L Anion Gap 20.6 H (5-15) BUN 11 (7-18) mg/dL Creatinine 0.7 (0.55-1.02) mg/dL Est Cr Clr Drug Dosing 116.39 mL/min Estimated GFR (MDRD) > 60 (>60) mL/min BUN/Creatinine Ratio 15.7 (14-18) Glucose 87 (74-106) mg/dL Calcium 9.4 (8.5-10.1) mg/dL Total Bilirubin 0.5 (0.2-1.0) mg/dL AST 18 (15-37) U/L ALT 17 (14-59) U/L Alkaline Phosphatase 190 H (46-116) U/L Total Protein 7.1 (6.4-8.2) g/dl Albumin 3.1 L (3.4-5.0) g/dl Globulin 4.0 gm/dL Albumin/Globulin Ratio 0.8 L (1-2) RPR (NONREACTIVE) SARS-CoV-2 RNA (EVERARDO) (NEGATIVE) Med Orders - Current: Current Medications Calcium Carbonate/Glycine (Tums) 1,000 mg PO Q2H PRN PRN Reason: Indigestion Diphenhydramine HCl (Benadryl) 25 mg IVPUSH Q6H PRN PRN Reason: pruritis Ephedrine Sulfate (Ephedrine Sulfate) 5 mg IVPUSH ASDIRECTED PRN PRN Reason: Hypotension Fentanyl (Sublimaze) 100 mcg EPIDUR Q3H PRN PRN Reason: Pain Last Admin: 09/23/20 21:15 Dose: 100 mcg Documented by: Fentanyl/Bupivacaine HCl (Fentanyl/Bupivacaine/Ns 2 Mcg-0.125% 100 Ml) 100 ml EPIDUR ASDIRECTED PRN PRN Reason: Pain Last Admin: 09/23/20 21:16 Dose: 100 ml Documented by: Lactated Ringer's (Ringers, Lactated) 1,000 mls @ 100 mls/hr IV ASDIRECTED WILLIAM Last Admin: 09/23/20 21:18 Dose: 100 mls/hr Documented by: Oxytocin/Lactated Ringer's (Pitocin In Lr 10 Units/1,000 Ml) 10 unit in 1,000 mls @ 500 mls/hr IV .CONTINUOUS WILLIAM Nalbuphine HCl (Nubain) 10 mg IVPUSH Q2H PRN PRN Reason: Pain Ondansetron HCl (Zofran) 4 mg IVPUSH Q4H PRN PRN Reason: Nausea/Vomiting Sodium Chloride (Saline Flush) 10 ml FLUSH ASDIRECTED PRN PRN Reason: Keep Vein Open Discontinued Medications Lidocaine HCl (Xylocaine 1%) 10 ml INJECT ONETIME ONE Stop: 09/23/20 20:14 - Problem List & Annotations (1) 38 weeks gestation of SNOMED Code(s): 03806754 Code(s): Z3A.38 - 38 WEEKS GESTATION OF Status: Acute Current Visit: Yes (2) Fibromyalgia SNOMED Code(s): 588356473 Code(s): M79.7 - FIBROMYALGIA Status: Acute Current Visit: Yes (3) Abnormal glucose tolerance test (GTT) during , antepartum Status: Acute Current Visit: Yes - Problem List Review Problem List Initiated/Reviewed/Updated: No - My Orders Last 24 Hours: My Active Orders 09/23/20 19:56 Non Stress Test [RC] PER UNIT ROUTINE Vital Signs [RC] PER UNIT ROUTINE Resuscitation Status Routine 09/23/20 20:13 Patient Status [ADT] Routine Activity as Tolerated [RC] PFP Communication Order [RC] ASDIRECTED Notify Provider [RC] PFP Notify Provider [RC] PRN Peripheral IV Care [RC] . DIRECTED Calcium Carbonate [Tums] 1,000 mg PO Q2H PRN Nalbuphine [Nubain] 10 mg IVPUSH Q2H PRN Ondansetron [Zofran] 4 mg IVPUSH Q4H PRN Sodium Chloride 0.9% [Saline Flush] 10 ml FLUSH ASDIRECTED PRN Electronic Heart Tones Ext w TOCO [WOMSER] Routine Electronic Heart Tones Internal [WOMSER] Per Unit Routine Peripheral IV Insertion Adult [OM.PC] Routine 09/23/20 20:15 Lactated Ringers [Ringers, Lactated] 1,000 ml IV ASDIRECTED Oxytocin/Lactated Ringers [Pitocin in LR 10 Units/1,000 ML] 10 unit in 1,000 ml IV .CONTINUOUS 09/23/20 20:20 BLOOD BANK HOLD SPECIMEN [BBK] Stat 09/23/20 22:45 PROTEIN/CREATININE RATIO,URINE [URCHEM] Routine 09/23/20 23:42 Patient Status Manage Transfer [TRANSFER] Routine - Plan Plan:: Ingrid Melendez is a 30-year-old now -0-0-3 status post , PPD #0 Admit to inpatient following normal spontaneous vaginal delivery Continue Pitocin per unit protocol following delivery of placenta and lactated Ringer's until tolerating regular diet Regular diet Vitals per unit routine Ibuprofen and Tylenol for pain control Assist with breast-feeding as needed Continue to monitor lochia Anticipate discharge home on day #2 due to late timing of delivery Rey Méndez MD 11:53 PM 09/23/2020
[2020-09-24] MEDS ORDERED: Witch Hazel Medicated Pads 40/Jar TOP PRN (00:10)
[2020-09-24] MEDS ORDERED: Docusate Sodium 100 MG Cap PO PRN (00:10)
[2020-09-24] MEDS ORDERED: Magnesium Hydroxide 400 MG/5 ML Susp 30 ML Cup PO PRN (00:10)
[2020-09-24] MEDS ORDERED: Oxytocin/Lactated Ringers 10 UNIT/1,000 ML BAG IV SCH (00:10)
[2020-09-24] MEDS ORDERED: Benzocaine/Menthol 20%-0.5% Spray 56 GM Canister TOP PRN (00:10)
[2020-09-24] MEDS ORDERED: Acetaminophen 325 MG Tab PO PRN (00:10)
[2020-09-24] MEDS ORDERED: Hydrocortisone Acetate 25 MG Supp RECTAL PRN (00:10)
[2020-09-24] MEDS: Lactated Ringers 1,000 ML IV SCH (00:47)
[2020-09-24] MEDS: Ibuprofen 600 MG Tab PO PRN ×4 (00:51→23:39)
[2020-09-24] MEDS ORDERED: Cyclobenzaprine 10 MG Tab PO PRN (05:15)
[2020-09-24] MEDS: oxyCODONE 5 MG Tab PO PRN ×3 (07:04→20:34)
[2020-09-24] MEDS: Prenatal Multivitamin with Calcium/Folic Acid/Iron Tab PO SCH (08:56)
--- NOTE | 2020-09-24 11:38 | PCM.SN.2 ---
- Free Text/Narrative Note: Post Progress Note PPD #1 Subjective: Doing well overall. Ambulating without difficulty. Lochia minimal. Voiding without difficulty. Tolerating regular diet without nausea or vomiting. Reports that she is having moderate to severe back pain since delivery. She took cyclobenzaprine and oxycodone 5 mg that helped with the back pain. Reports that her pelvic and cramping pain able to be controlled with oral medications. Breast-feeding with minimal difficulty. Objective: Vitals: Vital Signs - 24 hr 09/23/20 09/23/20 09/24/20 18:45 19:56 03:44 Temperature 36.6 C Temperature [ 36.8 C Temporal] Pulse, 87 Peripheral Pulse, 94 Peripheral [ Right Pulse Oximetry] Respiratory 16 16 Rate Blood Pressure 109/84 Blood Pressure 137/88 133/92 H [Left Upper Arm ] O2 Sat by Pulse 96 95 Oximetry Physical Exam General: Alert and oriented, no acute distress Lungs: Clear to auscultation bilaterally Heart: Regular rate and rhythm Abdomen: Soft, minimal appropriate tenderness, non-distended, fundus midline, n ontender, and 2 fingerbreadths below the umbilicus Extremities: Trace edema to bilateral ankles, no calf tenderness bilaterally ASSESSMENT: 30-year-old female -0-0-3 s/p normal vaginal delivery PPD #1, complicated by fibromyalgia, elevated 1 hour glucose test with normal 3-hour glucose test, psoriasis and history of migraines PLAN: Doing well Breast-feeding with minimal difficulty. Assist as needed Lochia minimal. Continue to monitor for appropriate lochia. Continue routine care Anticipate discharge home tomorrow due to late timing of delivery of Rey Méndez MD 11:36 AM 09/24/2020
--- NOTE | 2020-09-24 14:20 | PCM48HPAN ---
Post Anesthesia Note - EVALUATION WITHIN 48HRS OF ANESTHETIC Vital Signs in Normal Range: Yes Patient Participated in Evaluation: Yes Respiratory Function Stable: Yes Airway Patent: Yes Cardiovascular Function Stable: Yes Hydration Status Stable: Yes Pain Control Satisfactory: Yes Nausea and Vomiting Control Satisfactory: Yes Mental Status Recovered: Yes Vital Signs: Last Vital Signs Temp 97.9 F 09/24/20 03:44 Pulse 87 09/24/20 03:44 Resp 16 09/24/20 03:44 BP 109/84 09/24/20 03:44 Pulse Ox 95 09/24/20 03:44 - COMMENTS/OBSERVATIONS Free Text/Narrative:: Patient is on her day 1. Stated understanding about possible backaches following epidural anesthesia. Mentions having some minor back pain ath the left side at this time. Explanation given about importance of avoiding back straining. Denies any headache or lightheadedness at this time. Patient also reports left inner and upper thigh cutaneous numbness at this time, per her report those symptoms have been improving. Comfortable now. Ambulating, no difficulty urinating.
[2020-09-25] MEDS: oxyCODONE 5 MG Tab PO PRN ×2 (03:04→08:56)
[2020-09-25] MEDS: Prenatal Multivitamin with Calcium/Folic Acid/Iron Tab PO SCH (08:57)
[2020-09-25] MEDS: Ibuprofen 600 MG Tab PO PRN (08:58)
--- NOTE | 2020-09-25 11:07 | PCM.SN.2 ---
- Free Text/Narrative Note: Post Progress Note PPD #2 Subjective: Doing well overall. Ambulating without difficulty. Lochia minimal. Voiding without difficulty. Tolerating regular diet without nausea or vomiting. Reports that she is continuing to have moderate to severe back pain since delivery and feels like it is getting worse after delivery. She states that this is happened after her other deliveries as well. She took cyclobenzaprine on PPD #1 that helped but states that it made her quite sleepy and tired and has not taken another dose since then. She is also taken oxycodone 5 mg that helped with the back pain. Reports that her pelvic and cramping pain able to be controlled with oral medications. Breast-feeding with minimal difficulty. Objective: Vitals: Vital Signs - 24 hr 09/24/20 09/24/20 09/25/20 16:14 20:24 02:57 Temperature 36.7 C 36.7 C 36.7 C Pulse, 80 83 65 Peripheral Respiratory 14 15 15 Rate Blood Pressure 105/75 117/75 94/66 O2 Sat by Pulse 96 94 L 95 Oximetry Physical Exam General: Alert and oriented, no acute distress Lungs: Clear to auscultation bilaterally Heart: Regular rate and rhythm Abdomen: Soft, minimal appropriate tenderness, non-distended, fundus midline, nontender, and 3 fingerbreadths below the umbilicus Extremities: No edema, no calf tenderness bilaterally ASSESSMENT: 30-year-old female -0-0-3 s/p normal vaginal delivery PPD #2, complicated by fibromyalgia, elevated 1 hour glucose test with normal 3-hour glucose test, psoriasis and history of migraines PLAN: Doing well Breast-feeding with minimal difficulty. Assist as needed Lochia minimal. Continue to monitor for appropriate lochia. Continue routine care Discharge home today Rey Méndez MD 11:05 AM 09/25/2020
--- NOTE | 2020-09-25 11:21 | PCM.DCSUM1 ---
Discharge Summary - Hospital Course Free Text/Narrative:: - General Info Date of Service: 09/23/20 Mother's Due Date: 10/06/20 - Delivery Note Labor: Spontaneous, Augmented by ARM Delivery Outcome: Livebirth Delivery Method: Spontaneous Vaginal Delivery-Single Presentation: Left Occiput Anterior (CELINA) Nuchal Cord: None Anesthesia Type: Epidural Amniotic Fluid Description: Clear Episiotomy Type: None Laceration: Labial (bilateral superficial medial lacerations, hemostatic, not repaired) Placenta: Intact, Spontaneous Cord: 3 Vessels Estimated Blood Loss: 200 Resuscitation Needed: No : Bulb Syringe, Cathether, Stimulated, Warmed, Rankin Used Provider: Rey Méndez Score 1 min: 8 Score 5 min: 9 Second Stage Interventions: Reports: Pushing, Stirrups/Leg Supports Delivery Comments (Free Text/Narrative):: Stage I: Ingrid Melendez was admitted for spontaneous labor. On admission her cervix was dilated to 3 to 4 cm. She was GBS negative. She made progression to 5 cm over the course of the first several hours on labor and delivery. She was given an epidural for anesthesia. She had artificial rupture membranes with clear fluid. She progressed to complete and pushing. Stage II: On 09/23/2020 she had a normal vaginal delivery of a live female at 23:26. Apgars of 8 & 9. Weight of 3030 g (6 lbs 10.9 oz). Length of 20.0 inches. There was no nuchal cord. Infant was delivered in CELINA position. The cord was doubly clamped and cut by father the . Infant was placed on mother's abdomen. Stage III: She had a spontaneous delivery of an intact placenta in Leanna presentation. Three vessel cord. She was given pitocin and fundal massage. She had superficial bilateral lateral medial labia minora lacerations that were hemostatic and not repaired. Mom and baby were stable to recovery. EBL of 200 mL. Diagnosis: Stroke: No - Discharge Data Discharge Date: 09/25/20 Discharge Disposition: Home, Self-Care 01 Condition: Good - Referral to Home Health Primary Care Physician: Jackelyn Young MD - Discharge Diagnosis/Problem(s) (1) 38 weeks gestation of SNOMED Code(s): 43200805 ICD Code: Z3A.38 - 38 WEEKS GESTATION OF Status: Acute Current Visit: Yes (2) Fibromyalgia SNOMED Code(s): 633153952 ICD Code: M79.7 - FIBROMYALGIA Status: Acute Current Visit: Yes (3) Abnormal glucose tolerance test (GTT) during , antepartum Status: Acute Current Visit: Yes - Patient Summary/Data Complications: None Consults: None Hospital Course: Ingrid Melendez was admitted for continuous labor. On admission her cervix was dilated to 3-4 cm. She was GBS negative.she made progression to 5 cm over the course was for several hours on labor and delivery. She was given an epidural for anesthesia. She had artificial rupture of membranes with clear fluid. She progressed to complete and began pushing. On 09/23/2020 she had a normal vaginal delivery of a live female at 23:26. Apgars of 8 and 9. Weight of 3030 g (6 pounds 10.9 ounces). Her course was uneventful. Her pain was able to be moderately controlled with cyclobenzaprine and oxycodone 5 mg in addition to Tylenol and ibuprofen. Patient also recommended to use heating pad. She had minimal lochia. She was ambulating, tolerating a regular diet and voiding normally. She was breast-feeding with minimal difficulty. She was afebrile and her hematocrit was 42.1 on admission. She desired to be discharged home on the morning of PPD #2. Her blood type is B+. - Patient Instructions Diet: Regular Diet as Tolerated Activity: Apply Ice, As Tolerated Activity, Other: Nothing in the vagina for 6 weeks Driving: Do Not Drive (While taking narcotic medications are having significant pain) Showering/Bathing: May Shower Notify Provider of: Fever, Increased Pain, Swelling and Redness, Drainage, Nausea and/or Vomiting Other/Special Instructions: Please contact your physician's office if you have heavy vaginal bleeding enough to soak a pad in less than an hour for several hours. Monitor for any signs of an infection in the breasts with severe pain or redness of the breast. - Discharge Plan *PRESCRIPTION DRUG MONITORING PROGRAM REVIEWED*: Yes *COPY OF PRESCRIPTION DRUG MONITORING REPORT IN PATIENT ALONSO: No Prescriptions/Med Rec: oxyCODONE 5 mg PO Q6H PRN #30 tablet PRN Reason: Pain (Severe 7-10) Home Medications: Home Meds Calcium Carb/Vitamin D3/Vit K1 [Calcium + D Soft Chewable Tab] 2 tab CHEW DAILY 03/09/15 [History] Acetaminophen [Tylenol] 650 mg PO Q6H PRN tablet 09/25/20 [Rx] Benzocaine/Menthol [Dermoplast Pain Relief [place]] 1 spray TOP ASDIRECTED PRN canister 09/25/20 [Rx] Docusate Sodium [Colace] 100 mg PO BID PRN cap 09/25/20 [Rx] Hydrocortisone Acetate [Anucort-HC] 25 mg RECTAL BID PRN supp 09/25/20 [Rx] Ibuprofen [Motrin] 600 mg PO Q6H PRN tablet 09/25/20 [Rx] oxyCODONE 5 mg PO Q6H PRN #30 tablet 09/25/20 [Rx] rory Galindo [Tucks] 1 pad TOP ASDIRECTED PRN pad 09/25/20 [Rx] Patient Handouts: Care of a Perineal Tear, Care After Vaginal Delivery Referrals: Jackelyn Young MD [Primary Care Provider] - (Follow-up in 6 weeks for routine visit or earlier as needed.) - Discharge Summary/Plan Comment DC Time >30 min.: No - Patient Data Vitals - Most Recent: Last Vital Signs Temp 36.7 C 09/25/20 02:57 Pulse 65 09/25/20 02:57 Resp 15 09/25/20 02:57 BP 94/66 09/25/20 02:57 Pulse Ox 95 09/25/20 02:57 Weight - Most Recent: 75.296 kg I&O - Last 24 hours: Intake & Output 09/24/20 09/25/20 09/25/20 22:59 06:59 14:59 Intake Total 180 Balance 180 Med Orders - Current: Current Medications Acetaminophen (Tylenol) 650 mg PO Q6H PRN PRN Reason: mild pain or fever Last Admin: 09/24/20 03:52 Dose: 650 mg Documented by: Benzocaine/Menthol (Dermoplast Pain Relief [place]) 0 gm TOP ASDIRECTED PRN PRN Reason: Perineal Comfort Measure Last Admin: 09/24/20 00:50 Dose: 1 canister Documented by: Cyclobenzaprine HCl (Flexeril) 10 mg PO TID PRN PRN Reason: Pain (severe 7-10) Last Admin: 09/24/20 07:04 Dose: 10 mg Documented by: Docusate Sodium (Colace) 100 mg PO BID PRN PRN Reason: Constipation Hydrocortisone Acetate (Anucort-Hc) 25 mg RECTAL BID PRN PRN Reason: Hemorrhoid pain Oxytocin/Lactated Ringer's (Pitocin In Lr 10 Units/1,000 Ml) 10 unit in 1,000 mls @ 100 mls/hr IV TITRATE WILLIAM; Protocol Ibuprofen (Motrin) 600 mg PO Q6H PRN PRN Reason: Mild pain or fever Last Admin: 09/25/20 08:58 Dose: 600 mg Documented by: Magnesium Hydroxide (Milk Of Magnesia) 30 ml PO BEDTIME PRN PRN Reason: Constipation Oxycodone HCl (Oxycodone) 5 mg PO Q6H PRN PRN Reason: Pain (severe 7-10) Last Admin: 09/25/20 08:56 Dose: 5 mg Documented by: Prenat Multivit/[place]/Iron/Folic Ac ( Plus Iron) 1 each PO DAILY WILLIAM Last Admin: 09/25/20 08:57 Dose: 1 each Documented by: Rory Galindo ([facility]) 1 pad TOP ASDIRECTED PRN PRN Reason: Perineal Comfort Measure Last Admin: 09/24/20 00:50 Dose: 1 tub Documented by: Discontinued Medications Calcium Carbonate/Glycine (Tums) 1,000 mg PO Q2H PRN PRN Reason: Indigestion Diphenhydramine HCl (Benadryl) 25 mg IVPUSH Q6H PRN PRN Reason: pruritis Ephedrine Sulfate (Ephedrine Sulfate) 5 mg IVPUSH ASDIRECTED PRN PRN Reason: Hypotension Fentanyl (Sublimaze) 100 mcg EPIDUR Q3H PRN PRN Reason: Pain Last Admin: 09/23/20 21:15 Dose: 100 mcg Documented by: Fentanyl/Bupivacaine HCl (Fentanyl/Bupivacaine/Ns 2 Mcg-0.125% 100 Ml) 100 ml EPIDUR ASDIRECTED PRN PRN Reason: Pain Last Admin: 09/23/20 21:16 Dose: 100 ml Documented by: Lactated Ringer's (Ringers, Lactated) 1,000 mls @ 100 mls/hr IV ASDIRECTED WILLIAM Last Admin: 09/24/20 00:47 Dose: 100 mls/hr Documented by: Oxytocin/Lactated Ringer's (Pitocin In Lr 10 Units/1,000 Ml) 10 unit in 1,000 mls @ 500 mls/hr IV .CONTINUOUS WILLIAM Last Admin: 09/24/20 00:49 Dose: 500 mls/hr Documented by: Lidocaine HCl (Xylocaine 1%) 10 ml INJECT ONETIME ONE Stop: 09/23/20 20:14 Nalbuphine HCl (Nubain) 10 mg IVPUSH Q2H PRN PRN Reason: Pain Ondansetron HCl (Zofran) 4 mg IVPUSH Q4H PRN PRN Reason: Nausea/Vomiting Sodium Chloride (Saline Flush) 10 ml FLUSH ASDIRECTED PRN PRN Reason: Keep Vein Open
[2020-09-25 15:14] VITALS: BP 129/78; PULSE 92
== END 2020-09-25 13:00 | disposition home or self-care (01) | DRG 560 ==
LOC: JD.OBCHECK 18:35 → JD.OB 20:13 → OBSVTOIN 23:26 → JD.OB 23:27
PROVIDERS: ADMIT Obstetrics & Gynecology; ATTEND Obstetrics & Gynecology
PROC: 10E0XZZ Delivery of Products of Conception, External Approach (ICD-10-PCS; principal; 2020-09-23)
PROC: 10907ZC Drainage of Amniotic Fluid, Therapeutic from Products of Conception, Via Natural or Artificial Opening (ICD-10-PCS; 2020-09-23)
PROC: 3E0R3BZ Introduction of Anesthetic Agent into Spinal Canal, Percutaneous Approach (ICD-10-PCS; 2020-09-23)
DX: O75.89 Other specified complications of labor and delivery (principal); M79.7 Fibromyalgia; O70.0 First degree perineal laceration during delivery; Z37.0 Single live birth; Z3A.38 38 weeks gestation of pregnancy; Z20.822 Contact with and (suspected) exposure to COVID-19
CPT/HCPCS: 01967; 36415; 51702; 59025; 59409; 80053; 82570; 84156; 85025; 86592; A9270-GY; J2590; J3010; J7120; U0002

== ENCOUNTER 2022-08-09 19:19 | Emergency (ER) | payer BC ==
[2022-08-09 20:19] VITALS: BP 129/99; PULSE 80
[2022-08-09] MEDS ORDERED: HYDROmorphone 0.5 MG/0.5 ML Syringe IVPUSH ONE (20:28)
[2022-08-09] MEDS ORDERED: Ketorolac 30 MG/ML SDV IVPUSH ONE (20:28)
[2022-08-09] MEDS ORDERED: Sodium Chloride 0.9% 1,000 ML IV STA (20:28)
[2022-08-09] MEDS ORDERED: Ondansetron 4 MG/2 ML SDV IVPUSH ONE (20:28)
[2022-08-09] MEDS ORDERED: diphenhydrAMINE 50 MG/ML SDV IVPUSH ONE (20:30)
[2022-08-09 21:14] LABS: ESTIMATED GFR 121 mL/min (>60)
[2022-08-09] MEDS ORDERED: predniSONE 10 MG Tab PO ONE (21:44)
== END 2022-08-09 22:31 | disposition home or self-care (01) ==
LOC: JD.ED 19:19
DX: G43.909 Migraine, unspecified, not intractable, without status migrainosus (principal); M54.2 Cervicalgia
CPT/HCPCS: 36415; 70450; 72125; 80053; 85025; 86140; 96361; 96374; 96375; 99284; J1170; J1200; J1885; J2405; J7030; J7512